=== PATIENT | female | born 1970 | race Caucasian/White ===

== ENCOUNTER 2017-03-29 08:25 | Day surgery (SDC) | payer OTHER ==
[~2017-03-29] VITALS: Ht 154.9 cm; Wt 76.2 kg
[2017-03-29 09:10] VITALS: Ht 154.9 cm; Wt 76.2 kg
[2017-03-29] MEDS ORDERED: AMIT10TA6 PO (09:13)
[2017-03-29] MEDS ORDERED: LIDOCAINE 4% SOLUTION 50 ML BTL ONE (09:23)
[2017-03-29 09:24] VITALS: BP 100/62; PULSE 69; RESP 18
[2017-03-29 10:10] VITALS: BP 101/65; PULSE 72; RESP 14
[2017-03-29] MEDS ORDERED: MIDAZOLAM 1 MG/ML 2 ML INJ ONE ×2 (10:22)
[2017-03-29] MEDS ORDERED: FENTAnyl 50 MCG/ML VIAL ONE (10:22)
--- NOTE | 2017-03-29 11:26 | GILP ---
DATE OF PROCEDURE: 03/29/2017 PROCEDURE PERFORMED: Esophagogastroduodenoscopy. PREOPERATIVE DIAGNOSIS: Patient presenting with history of chronic abdominal pain unresponsive to routine [id number]-ptl-ccustty therapy. Rule out peptic ulcer disease, gastritis. POSTOPERATIVE DIAGNOSIS: Mild fundal gastritis. Duodenal folds appear to be abnormal. There is evidence of scalloping of the folds. Biopsy done to rule out sprue. DESCRIPTION OF PROCEDURE: After informed written consent is obtained. Patient was also in the left lateral side. Intravenous anesthesia was given, which included 3 mg Versed and 50 mcg of fentanyl. When the patient became somnolent, Olympus video upper endoscope was introduced into the oropharynx and then into the esophagus. The esophagus appeared normal. Endoscope at this time was advanced into the stomach. Stomach showed evidence of several areas of erythema with no ulcers. No neoplasm. Mostly gastritis noted, which is of milder degree in the fundus of the stomach. Biopsy was done from the antrum, the lesser curvature and the fundus to rule out H pylori infection. Scope at this time was advanced into the stomach. Several folds showed evidence of scalloping of the folds. There is no evidence of ulcers. No evidence of tumor. At this time, biopsies were done from the duodenal folds and endoscope at this time was withdrawn and the procedure was terminated. PLAN: Recommend wait for the pathology report. In the meanwhile, omeprazole 40 mg a day for 2 months. Dictated By: Don Isaacs MD /chen/ramona /Document#: [id number] CC: Don Isaacs MD; Dr. Jenny Guerra in [place];*[facility]*
== END 2017-03-29 12:11 | disposition home or self-care (01) ==
LOC: GIL 08:25
PROVIDERS: ATTEND Internal Medicine Gastroenterology
DX: K29.50 Unspecified chronic gastritis without bleeding (principal)
CPT/HCPCS: 43239; 84703; 88305; 88312; J2250; J3010; Z7610